=== PATIENT | male | born 1970 | race African-American/Black ===

== ENCOUNTER 2017-01-25 12:59 | Emergency (ER) | payer MEDICARE, OTHER ==
[2017-01-25 12:35] LABS: BASOPHILS 0.5 %; BASOPHILS ABSOLUTE 0.04 10/3/uL (0.0-0.16); EOSINOPHILS ABSOLUTE 0.17 10/3/uL (0.0-0.53); ER CBC TAT 0 Hrs 08 Mins; HEMATOCRIT 39.3 % (40.0-51.0); HEMOGLOBIN 12.8 g/dL (13.6-17.8); IMMATURE GRANULOCYTES 0.2 %; IMMATURE GRANULOCYTES ABSOLUTE 0.02 10/3/uL (0.0-0.11); LYMPHOCYTES 27.9 %; LYMPHOCYTES ABSOLUTE 2.43 10/3/uL (0.67-4.30); MEAN CORPUS HGB CONC 32.6 g/dL (32.0-36.0); MEAN CORPUSCULAR HEMOGLOB 26.5 pg (26.0-34.0); MEAN CORPUSCULAR VOLUME 81.4 fL (80-100); MEAN PLATELET VOLUME 11.3 fL (9.2-13.0); MONOCYTES 10.3 %; NEUTROPHILS 59.1 %; NEUTROPHILS ABSOLUTE 5.15 10/3/uL (2.02-8.40); PLATELET COUNT 218 10/3/uL (150-400); RBC DISTRIBUTION WIDTH 14.6 % (12.0-16.0); RED CELL COUNT 4.83 10/6/uL (4.7-6.1); WHITE BLOOD CELLS 8.7 10/3/uL (4.5-10.5)
[2017-01-25 12:37] LABS: MANUAL DIFF NO %
[2017-01-25 12:52] LABS: A/G RATIO 0.9 (0.7-1.9); ALBUMIN 3.9 G/DL (3.5-5.0); CALCIUM, SERUM 8.7 MG/DL (8.5-10.4); CHLORIDE, SERUM 99 MMOL/L (96-112); CO2 (CARBON DIOXIDE) 27 MMOL/L (24-34); GLOBULIN 4.5 G/DL (2.5-4.1); POTASSIUM, SERUM 5.3 MMOL/L (3.5-5.3); SGPT(ALT) 71 U/L (5-65); SODIUM, SERUM 138 MMOL/L (135-148); TOTAL BILIRUBIN 0.6 MG/DL (0-1.2); TOTAL PROTEIN 8.4 G/DL (6.0-8.5)
[2017-01-25 12:58] LABS: ALKALINE PHOSPHATASE 158 U/L (45-117); BUN (BLOOD UREA NITROGEN) 51 MG/DL (6-23); GFR AFRICAN AMERICAN 5 ML/MIN (>=60); GFR NON AFRICAN AMERICAN 5 ML/MIN (>=60); GLUCOSE, SERUM 155 MG/DL (60-99); SGOT(AST) 39 U/L (5-40)
[~2017-01-25 12:59] MED LIST: APIDRA SC; BYSTOLIC10 MG PO; BYSTOLIC5 MG PO; CODEINE PO; COZAAR100 MG PO; CRESTOR20 MG PO; CRESTOR5 MG PO; DEMA100 PO; DEMA20 PO; DENIES HOME MEDS; EXFORGE1 TA2 PO; HUMALOGPEN SC; IBU800 PO; L40 PO; LEVEMFLXPN SC; LEVEMIR SC; LISINOPRIL40 MG PO; LOP100 PO; MONODOX100 MG PO; NATURA2 OPH; NEPHRO PO; NORCO1 TA1 PO; NORV10 PO; OXYCOD PO; OXYCON20 PO; P20 PO; PROVHFA INH; ROXICODONE15 MG PO; TRADJENTA5 MG PO; TRIBENZOR 40-11 EAC1 PO; Z-PAK PO; ZESTORETIC PO; ZESTORETIC1 TA1 PO; [UNRECOGNIZED DRUG - OTHER] PO
[2017-01-25 14:01] LABS: ASCORBIC ACID (UR NOT ORDER) NEG (NEG); BILIRUBIN, URINE NEGATIVE (NEG); ER URINALYSIS TAT 0 Hrs 19 Mins; KETONE, URINE NEGATIVE (NEG); LEUKOCYTE ESTERASE(NOT OR LARGE (NEG); NITRITE (URINE) NEG (NEG); WBC (NOT ORDERED) (RFLEX) 116 (0-5)
[2017-05-23] MEDS ORDERED: HYDROCHLOROT25 MG PO (09:11)
[2017-05-23] MEDS ORDERED: NORV10 PO (09:12)
[2017-05-23] MEDS ORDERED: OXYCODONE HCL PO (09:13)
[2017-05-23] MEDS ORDERED: LEVEMFLXPN SC (09:13)
[2017-05-23] MEDS ORDERED: PHOSLO PO (09:14)
== END 2017-01-25 15:46 | disposition home or self-care (01) ==
LOC: ER 12:59
PROVIDERS: Emergency Medicine
DX: R10.9 Unspecified abdominal pain (principal); N18.9 Chronic kidney disease, unspecified; I12.9 Hypertensive chronic kidney disease with stage 1 through stage 4 chronic kidney disease, or unspecified chronic kidney disease; E11.22 Type 2 diabetes mellitus with diabetic chronic kidney disease; F17.200 Nicotine dependence, unspecified, uncomplicated; Z88.5 Allergy status to narcotic agent; Z91.038 Other insect allergy status; Z79.4 Long term (current) use of insulin; Z79.899 Other long term (current) drug therapy
CPT/HCPCS: 80053; 81001; 83690; 85025; 87086; 99284; A9270-GY